=== PATIENT | male | born 1960 | race Caucasian/White ===

== ENCOUNTER 2019-01-08 10:57 | Outpatient (CLI) | payer OTHER ==
[~2019-01-08] VITALS: Ht 182.9 cm; Wt 65.0 kg
--- NOTE | ~2019-01-08 | HEMODYNAMI ---
PATIENT:ZANDER ZAMOAR MEDICAL RECORD: [id number] : 56 LOCATION:D.CAT ADMISSION DATE: 01/08/19 Generatedon:01/08/201913:38 Patient name: ZANDER ZAMORA Patient #: [id number] SSN: : 1960 Date of study: 01/08/2019 Page: Of Hemodynamic Procedure Report Patient Data Patient Demographics Procedure consent was obtained First Name: ZANDER Gender: Male Last Name: SERA : 1960 Patient #: [id number] Age: 58 year(s) Race: Unknown Additional ID: [id number] Contact details Address: [address] [place] [address] State: [place] City: [place] Zip code: [address] Past Medical History Allergies: No known allergies Admission Admission Data Admission Date: 01/08/2019 Admission Time: 10:57 Admit Source: Other Lab Results Lab Result Date: 01/08/2019 Lab Result Time: 11:30 Biochemistry Name Units Result Min Max BUN mg/dl 6 -*(----)-- 7 18 Creatinine mg/dl 0.8 --(-*--)-- 0.6 1.3 CBC Name Units Result Min Max Hematocrit % 40.1 -*(----)-- 42 54 Hemoglobin g/dl 14.5 --(*---)-- 13.5 17.5 Procedure Procedure Types Cath Procedure Diagnostic Procedure LHC Cardioversion External Procedure Description Procedure Date Procedure Date: 01/08/2019 Procedure Start Time: 13:30 Procedure End Time: 13:34 Procedure Staff Name Function Kaiser Cordero RT Monitor Nikole Chavez RT Facilities Officer Waqas Shah RT Facilities Officer Humphrey Walker RN Facilities Officer David Adames RN Nurse Christian Arndt MD Additional personnel Gurjit Chaudhary MD Performing Physician Procedure Data Cath Procedure Fluoroscopy Diagnostic fluoroscopy Total fluoroscopy Time: 0 time: 0 min min Diagnostic fluoroscopy Total fluoroscopy dose: 0 dose: 0 mGy mGy Contrast Material Contrast Material Type Amount (ml) Isovue 300 0 Estimated blood loss: 0 ml Procedure Complications No complications Procedure Medications Medication Administration Route Dosage Oxygen etCO2 Nasal cannula 2 l/min Refer to Anesthesia Notes for Sedation Medications Hemodynamics Rest HGB: 14.5 (g/dl) Heart Rate: 103 (bpm) Snapshots Pre Cath Intra NCS Post Cath Vital Signs Time Heart Resp SPO2 etCO2 NIBP (mmHg) Rhythm Pain Sedation Rate (ipm) (%) (mmHg) Status Level (bpm) 12:59:31 129 20 92 0 123/93(106) A-Fib 0 (11) 10(A) , No pain 13:03:35 119 7 92 0 124/92(105) A-Fib 0 (11) 10(A) , No pain 13:07:42 119 17 93 0 135/81(116) A-Fib 0 (11) 10(A) , No pain 13:11:50 120 14 95 21.6 128/90(104) A-Fib 0 (11) 10(A) , No pain 13:15:56 124 12 96 26.1 127/91(120) A-Fib 0 (11) 10(A) , No pain 13:20:02 120 14 95 23.8 134/90(114) A-Fib 0 (11) 10(A) , No pain 13:24:08 113 20 96 23.1 124/96(114) A-Fib 0 (11) 10(A) , No pain 13:29:21 120 22 97 19.4 116/74(94) NSR 0 (11) 9(A) , No pain 13:33:29 88 36 96 16.4 127/70(112) NSR 0 (11) 10(A) , No pain Medications Time Medication Route Dose Verified Delivered Reason Notes Effective ness by by 13:01:31 Oxygen etCO2 2 Jorge Hernandez used for Nasal l/min Emmanuel Adames jewelry sales representative cannula 13:01:36 Refer to Jorge Hernandez Anesthesia Emmanuel Adames RN Notes for Sedation Medications Procedure Log Time Note 12:27:52 Informed consent obtained and on chart 12:27:55 Admit Source: Other 12:28:14 Diagnostic Cath status Elective 12:28:15 Time tracking: Regular hours (M-F 7:00 - 5:00) 12:28:18 Plan of Care:Hemodynamics will remain stable., Cardiac rhythm will remain stable., Comfort level will be maintained., Respiratory function will remain adequate., Patient/ family verbilizes understanding of procedure., Procedure tolerated without complication., Recovers from procedure without complications.. 12:40:26 David Adames RN sent for patient. Start room use. 12:44:22 H&P Date Dictated: 01/07/2019 Within 30 days and on chart., H&P Addendum completed by physician on day of procedure. (MUST COMPLETE FOR ALL OUTPATIENTS). 12:45:23 Lab Result : BUN 6 mg/dl 12:45:23 Lab Result : Creatinine 0.8 mg/dl 12:45:23 Lab Result : Hemoglobin 14.5 g/dl 12:45:23 Lab Result : Hematocrit 40.1 % 12:45: Lab results completed and on chart. 12:53:06 Patient arrived from Pre/Post Procedure Room to [facility]. Patient remains on bed/stretcher for procedure. 12:53:08 Warm blankets applied, and zuleyka hugger turned on for patient comfort. 12:58:24 Correct patient and procedure confirmed by team. 12:58:26 ECG and BP/O2 sat monitors applied to patient. 12:58:35 Vital chart was started 12:58:48 Baseline sample Acquired. 12:58:53 Rhythm: atrial fibrillation 12:58:55 Full Disclosure recording started 12:58:58 Pre-procedure instructions explained to patient. 12:58:58 Pre-op teaching completed and patient verbalized understanding. 12:59:01 Family in waiting room. 12:59:04 Patient NPO since Midnight. 12:59:13 Patient allergic to No known allergies 12:59:14 Is the patient allergic to Iodine/contrast media? No. 12:59:16 Is patient on blood thinner?Yes 12:59:18 ACC The patient was administered the following blood thiners within the last 24 hours: Xarelto 12:59:39 Patient diabetic? No. 12:59:43 Previous problem with sedation/anesthesia? No ? 12:59:45 Snore? No 12:59:46 Sleep apnea? No 12:59:48 Deviated septum? No 12:59:49 Opens mouth fully? Yes 12:59:52 Sticks out tongue? Yes 12:59:54 Airway obstruction? No ? 12:59:56 Dentures? No ? 13:00:03 Patient pain scale 0/10 ?. 13:00:10 IV patent on arrival in right antecubital with 0.9% NaCl at KVO. 13:00:24 Quick Combo opened to sterile field. 13:00:26 Quick combo pads placed on patients chest and back. 13:01:31 Oxygen 2 l/min etCO2 Nasal cannula was administered by David Adames RN; used for procedure; 13:01:36 Refer to Anesthesia Notes for Sedation Medications was administered by David Adames RN; ; 13:17:06 Christian Arndt MD present and monitoring patient for TIVA. 13::32 Physician arrived 13::33 --------ALL STOP TIME OUT------ ::34 Final Timeout: patient, procedure, and site verified with staff and physician. All members of the team are in agreement. 13:28:42 Fire Safety Assessment: C--Open oxygen or nitrous oxide is being used. 13:28:57 Physical assessment completed. ASA score P 3 - A patient with severe systemic disease as per Gurjit Chaudhary MD. 13:29:01 Sedation plan: TIVA Medication:Propofol 13:29:02 Procedure started. 13:29:16 Defibrillator synced and charged to 200 Joules. 13:30:07 Shock delivered. 13:30:11 Patient cardioverted to sinus rhythm . 13:30:58 Procedure ended.(Physican Out) 13:32:43 Fluoroscopy time 00.00 minutes. 13:32:46 Fluoroscopy dose: 0 mGy 13:32:46 Flurop Dose total: 0 13:32:49 Contrast amount:Isovue 300 0ml. 13:32:58 Post Procedure Pulses reassessed and unchanged 13:33:03 Post-procedure physical assessment completed. ASA score P 3 - A patient with severe systemic disease as per Gurjit Chaudhary MD. 13:33:09 Post procedure rhythm: unchanged. 13:33:12 Estimated blood loss: 0 ml 13:33:14 Post procedure instruction explained to patient.Patient verbalizes understanding. 13:33:14 Patient needs reinforcement of post procedure teaching. 13:33:34 Procedure and supply charges have been captured, reviewed, submitted and are correct. 13:33:46 Procedure Complication : No complications 13:33:47 Vital chart was stopped 13:33:48 See physician's report for complete and final results. 13:33:49 Report given to Pre/Post Procedure Room. 13:33:51 Patient transfered to Pre/Post Procedure Room with Stretcher. 13:34:19 Procedure ended. 13:34:19 Full Disclosure recording stopped 13:34:22 End room use (Document Last) Device Usage Item Manufacture Quantity Catalog Hospital Part Current Minimal Lot# / Name Number Charge Number [facility] Andrze co# Code NLT SPINE 1 [id number] Combo Signature Audit [place] Stage Time Signature Unsigned Intra-Procedure 01/08/2019 Kaiser Cordero 1:37:59 PM RT(R) Signatures Monitor : Kaiser Cordero RT Signature : Date : Time : [address] [address]
[2019-01-08] MEDS ORDERED: XARELTO20 MG PO (11:09)
[2019-01-08] MEDS ORDERED: CARTIA XT180 MG PO (11:10)
[2019-01-08] MEDS ORDERED: BETAPACE 80 MG80 MG (11:10)
[2019-01-08 11:28] VITALS: BP 122/82; Ht 182.9 cm; Wt 65.0 kg
[2019-01-08 11:49] LABS: BASOPHILS 0.2 % (0-2); EOSINOPHILS 0.7 % (0-7); HEMATOCRIT 40.1 % (42.0-54.0); HEMOGLOBIN 14.5 g/dL (13.5-17.5); IMMATURE GRANULOCYTES 0.2 % (0-5); LYMPHOCYTES 15.3 % (15-50); MCH 35.5 pg (26.0-34.0); MCHC 36.2 g/dL (31.0-37.0); MCV 98.3 fL (80.0-100.0); MEAN PLATELET VOLUME 10.2 fL (7.4-10.4); MONOCYTES 11.6 % (2-11); PLATELET COUNT 243 10x3/uL (130-400); RBC 4.08 10x6/uL (4.20-6.10); RDW 13.3 % (11.5-14.5); WBC 13.8 10x3/uL (4.8-10.8)
[2019-01-08 12:04] LABS: INR 2.98 (0.85-1.17); PROTIME 30.2 SECONDS (11.6-15.0)
[2019-01-08 12:06] LABS: CALC OSMOLALITY 267 mosm/kg (275-300); CALCIUM 8.4 mg/dL (8.5-10.1); CARBON DIOXIDE 24.2 mmol/L (21.0-32.0); CHLORIDE - SERUM 98 mmol/L (98-107); CREATININE - SERUM 0.8 mg/dL (0.6-1.3); GLUCOSE 128 mg/dL (74-106); SODIUM 134 mmol/L (136-145); UREA NITROGEN 6 mg/dL (7-18); eGFR NON AFRICAN AMERICAN > 90 mL/min (90-120)
--- NOTE | 2019-01-08 13:45 | NUR ---
PT RECEIVED FROM CRIMINAL ATTORNEY POST CARDIOVERSION FOR RECOVERY. PT AWAKE AND ALERT, DENIES CHEST PAIN OR DISCOMFORT. HR NSR RATE 79, BP 123/82, 02 SAT 93, PLACED ON 2L/NC. SANDWICH AND COFFEE GIVEN PER REQUEST. CALL LIGHT IN REACH, DENIES NEEDS.
--- NOTE | 2019-01-08 14:02 | NUR ---
PT SITTING UP WATCHING TV, DENIES PAIN OR DISCOMFORT. BP 129/81, HR REMAINS NSR RATE 82. CALL LIGHT IN REACH
--- NOTE | 2019-01-08 14:30 | NUR ---
DISCHARGE INSTRUCTIONS REVIEWED W PT, VERBALIZED UNDERSTANDING. IV REMOVED W CATH INTACT, MONITORS REMOVED. PT UP TO DRESS FOR DISCHARGE.
--- NOTE | 2019-01-08 14:45 | NUR ---
PT DISCHARGED TO PRIVATE VEHICLE VIA WC
--- NOTE | 2019-01-14 14:51 | OP ---
PATIENT NAME: ZANDER ZAMORA MEDICAL RECORD: [id number] :56 LOCATION:D.CAT ADMISSION DATE: SURGEON: THOR PATRICIO MD DATE OF OPERATION: 01/08/2019 INDICATIONS: Atrial fibrillation. SUMMARY OF PROCEDURE: After general sedation via TIVA via anesthesia, single synchronized shock successfully restoring normal sinus rhythm from atrial fibrillation. IMPRESSION: Successful cardioversion. ESTIMATED BLOOD LOSS: Minimal. DISPOSITION: To the medical floor, stable. The patient was monitored extensively with blood pressure, pulse oximetry, and telemetry during the procedure. TRANSINT:[id number] Voice Confirmation ID: [id number] DOCUMENT ID: [id number] THOR PATRICIO MD at 1451 CC: [id number] DICTATION DATE: 01/08/[address] MAGISTRATE: 01/08/19 2248 [address]P CLI 01/08/19 [id number] [place] [address]
== END 2019-01-08 14:45 | disposition home or self-care (01) ==
LOC: D.CATH 10:57
PROVIDERS: Internal Medicine Cardiovascular Disease
DX: I48.91 Unspecified atrial fibrillation (principal); Z01.812 Encounter for preprocedural laboratory examination

== ENCOUNTER → 2019-08-06 12:31 | Outpatient (CLI) | payer OTHER ==
[2019-01-08 11:28] VITALS: BMI 19.4
[~2019-08-06 12:31] MED LIST: BETAPACE 80 MG80 MG; CARTIA XT180 MG PO; XARELTO20 MG PO
== END | disposition home or self-care (01) ==
LOC: D.HCCECHO 12:31 → D.HCCARDIO 13:00
PROVIDERS: ATTEND Internal Medicine Cardiovascular Disease
DX: I48.91 Unspecified atrial fibrillation (principal)